=== PATIENT | female | born 1985 | race Caucasian/White ===

== ENCOUNTER 2016-07-22 17:31 | Emergency (ER) | payer OTHER ==
[2016-07-22 17:32] VITALS: BMI 37.5
[2016-07-22 17:37] VITALS: BP 153/96; PULSE 110; RESP 18; TEMP 99.8; O2SAT 98
--- NOTE | 2016-07-22 18:30 | ED PDOC ---
HPI: Female Pain Time Seen by Provider: 07/22/16 17:39 Chief Complaint (Nursing): Female Genitourinary History Per: Patient Additional Complaint(s): Pt. states today she developed dysuria, hematuria, and frequency. Denies back pain, flank pain, fever, incontinence. Past Medical History Reviewed: Historical Data, Nursing Documentation, Vital Signs Vital Signs: Last Vital Signs Temp 99.8 F H 07/22/16 17:35 Pulse 110 H 07/22/16 17:35 Resp 18 07/22/16 17:35 BP 153/96 H 07/22/16 17:35 Pulse Ox 98 07/22/16 17:35 - Medical History PMH: Hypothyroidism - Family History Family History: States: No Known Family Hx - Home Medications Home Medications: Ambulatory Orders Medication Instructions Recorded Docusate [Colace] 100 mg PO DAILY #30 cap 01/27/16 Ferrous Sulfate [Feosol] 325 mg PO DAILY #30 tab 01/27/16 Ibuprofen [Motrin Tab] 600 mg PO Q6 PRN #40 tab 01/27/16 Nitrofurantoin Macrocrystals 100 mg PO BID #14 cap 07/22/16 [Macrobid] - Allergies Allergies/Adverse Reactions: Allergies Allergy/AdvReac Type Severity Reaction Status Date / Time No Known Allergies Allergy Verified 01/22/16 04:32 Review of Systems ROS Statement: Except As Marked, All Systems Reviewed And Found Negative Genitourinary Female: Positive for: Dysuria, Frequency, Hematuria Physical Exam - Physical Exam Appears: Positive for: Well, Non-toxic, No Acute Distress Skin: Positive for: Normal Color, Warm. Negative for: Rash Gastrointestinal/Abdominal: Positive for: Normal Exam, Soft. Negative for: Tenderness Back: Positive for: Normal Inspection. Negative for: L CVA Tenderness, R CVA Tenderness - Laboratory Results Urine POC: Negative Urine dip results: Positive for: Leukocyte Esterase (small), Blood (large), Nitrate (positive). Negative for: Ketones, Glucose, Bilirubin, Protein - ECG O2 Sat by Pulse Oximetry: 98 Disposition - Clinical Impression Clinical Impression: Urinary tract infection - Patient ED Disposition Is Patient to be Admitted: No - Disposition Referrals: [facility] [Outside] Disposition: Routine/Home Disposition Time: 18:31 Condition: STABLE Prescriptions: Nitrofurantoin Macrocrystals [Macrobid] 100 mg PO BID #14 cap Instructions: Urinary Tract Infection in Women (ED) Print Language: LITHUANIAN
== END 2016-07-22 19:03 | disposition home or self-care (01) ==
LOC: H.ER 17:31
DX: N39.0 Urinary tract infection, site not specified (principal); E03.9 Hypothyroidism, unspecified